=== PATIENT | female | born 1990 | race Caucasian/White ===

== ENCOUNTER 2016-09-23 02:56 | Emergency (ER) | payer SELFPAY ==
[~2016-09-23] VITALS: Ht 172.7 cm; Wt 131.5 kg
[2016-09-23 06:47] VITALS: BP 131/88
== END 2016-09-23 06:48 | disposition home or self-care (01) ==
LOC: ER 03:00
DX: F41.9 Anxiety disorder, unspecified (principal); F41.0 Panic disorder [episodic paroxysmal anxiety]
CPT/HCPCS: 71010; 93005; 99284